=== PATIENT | male | born 1980 | race Caucasian/White ===

== ENCOUNTER 2020-03-10 14:22 | Emergency (ER) | payer OTHER, SELFPAY ==
[2020-03-10 14:41] VITALS: BP 151/78; PULSE 81; RESP 16; TEMP 37.1; O2SAT 99
--- NOTE | 2020-03-10 15:02 | ED.GENADULT ---
HPI - General Adult General Chief complaint: Upper Respiratory Infection Stated complaint: upper respiratory infection Time Seen by Provider: 03/10/20 15:02 Source: patient Mode of arrival: ambulatory Limitations: no limitations History of Present Illness HPI narrative: 39-year-old male patient presents to the [facility] with complaints of a sore throat, a funny feeling to his tongue as well as a decrease in his taste. Patient states that his symptoms started about 2 days ago. Denies any fevers, runny nose. Patient states he has had a little bit of a cough with slight shortness of breath. Patient states that he is an active smoker. Denies any abdominal pain, nausea, vomiting or diarrhea. Patient requesting cover testing today. Related Data Home Medications Medication Instructions Recorded Confirmed Flonase Allergy Relief 03/10/20 Prilosec 03/10/20 Zyrtec 03/10/20 Allergies Allergy/AdvReac Type Severity Reaction Status Date / Time tramadol Allergy Unknown Unknown Verified 03/10/20 14:31 Review of Systems Review of Systems: Narrative: CONSTITUTIONAL: Denies fever, chills, or sweats. EYES: Denies visual changes, redness, or discharge. ENT: Denies rhinorrhea, congestion, positive sore throat, denies otalgia. Positive funny feeling to tongue and decrease in taste. CARDIOVASCULAR: Denies chest pain, palpitations, or edema. RESPIRATORY: Positive cough with slight dyspnea. GASTROINTESTINAL: Denies abdominal pain, nausea, vomiting, or diarrhea. GENITOURINARY: Denies dysuria or hematuria. SKIN: Denies rash or itching. MUSCULOSKELETAL: Denies back pain, joint pain, or myalgia. NEUROLOGIC: Denies headache, numbness, or weakness. PSYCHIATRIC: Denies anxiety or depression. [facility] Family History Family History Mother Hypertension Patient's mother is in good health Family history of diabetes mellitus in first degree relative Family history of heart disease in male family member before age 55 Father Family history of lung cancer, Onset Age: 56 Other Cerebrovascular accident Diabetes mellitus Family history of arthritis Family history of cardiovascular disease Family history of malignant neoplasm Social History Social History Smoking status: Former smoker Second hand tobacco smoke exposure: No Smoking end date: 09/05/14 Alcohol intake: current Comments At the time of my signature I agree with nursing past medical history, surgical, social, and family history. There is no relevant family history pertinent to the presenting complaint. Exam Narrative: Exam Narrative: GENERAL: Well-appearing, well-nourished, and in no acute distress. HEAD: Normocephalic, atraumatic. No tenderness noted to frontal and maxillary sinuses on palpation EYES: PERRLA and EOMI. ENT: Nares clear, no rhinorrhea or epistaxis. Mucous membranes moist. Posterior pharynx with 2+ tonsil enlargement and erythema noted. Bilateral TMs are clear no erythema or foreign bodies in the canal. NECK: Supple. No lymphadenopathy CHEST: Clear to auscultation. No respiratory distress. HEART: Regular rate and rhythm. No murmur heard. Normal peripheral pulses. ABDOMEN: Soft, nontender, nondistended, normal active bowel sounds. EXTREMITIES: Normal range of motion. No edema. SKIN: Warm, dry, no rash. NEURO: No focal deficits. Alert and oriented x3. Course Vital Signs Vital signs: Vital Signs Temperature 37.1 C 03/10/20 14:41 Pulse Rate 81 03/10/20 14:41 Respiratory Rate 16 03/10/20 14:41 Blood Pressure 151/78 H 03/10/20 14:41 Pulse Oximetry 99 03/10/20 14:41 Temperature 37.1 C 03/10/20 14:41 Pulse Rate 81 03/10/20 14:41 Respiratory Rate 16 03/10/20 14:41 Blood Pressure 151/78 H 03/10/20 14:41 Pulse Oximetry 99 03/10/20 14:41 Vital signs reviewed. The patient has been informed that they may hav
== END 2020-03-10 15:30 | disposition home or self-care (01) ==
PROVIDERS: Emergency Provider Nurse Practitioner Family
DX: Z20.828 Contact with and (suspected) exposure to other viral communicable diseases (principal); J02.9 Acute pharyngitis, unspecified; Z87.891 Personal history of nicotine dependence; K21.9 Gastro-esophageal reflux disease without esophagitis
CPT/HCPCS: 87081; 87880; 99213; G0463

== ENCOUNTER 2020-03-12 07:02 | Outpatient (NON) | payer OTHER, SELFPAY ==
[2020-03-12 18:07] LABS: SARS-CoV-2 RNA PCR Negative
== END 2020-03-12 07:03 ==
PROVIDERS: Visit Provider Nurse Practitioner Family
DX: J06.9 Acute upper respiratory infection, unspecified (principal); Z01.818 Encounter for other preprocedural examination
CPT/HCPCS: 87635; C9803; U0003